=== PATIENT | female | born 1960 | race Caucasian/White ===

== ENCOUNTER 2021-06-04 16:41 | Emergency (ER) | payer OTHER ==
[~2021-06-04] VITALS: Wt 122.5 kg
[~2021-06-04 16:41] MED LIST: AMOXIL125 MG/5 M PO; ULTRAM50 MG PO
[2021-06-04] MEDS ORDERED: ARIPIPRAZOLE20 MG PO (17:38)
[2021-06-04] MEDS ORDERED: PAROXETINE HCL40 MG PO (17:39)
[2021-06-04] MEDS ORDERED: BUSPIRONE HCL10 MG PO (17:39)
[2021-06-04] MEDS ORDERED: TRAZODONE150 MG PO (17:40)
[2021-06-04] MEDS ORDERED: HYDROCODONE-AC1 EAC1 PO (17:40)
[2021-06-04] MEDS ORDERED: OXYBUTYNIN5 MG PO (17:41)
[2021-06-04] MEDS ORDERED: Motrin,Rufen800 MG PO (19:22)
== END 2021-06-04 19:20 | disposition home or self-care (01) ==
LOC: ED 16:41
DX: S93.602A Unspecified sprain of left foot, initial encounter (principal); Z79.899 Other long term (current) drug therapy; W17.2XXA Fall into hole, initial encounter; Y93.89 Activity, other specified; Y92.89 Other specified places as the place of occurrence of the external cause; Y99.8 Other external cause status